=== PATIENT | female | born 1985 | race Caucasian/White ===

== ENCOUNTER 2017-08-26 22:37 | Emergency (ER) | payer OTHER ==
[2017-08-26] MEDS ORDERED: DEXAMETHASONE 10 MG/ML VIAL ONE (23:25)
[2017-08-26] MEDS ORDERED: ONDANSETRON 4 MG/2 ML VIAL ONE (23:26)
[2017-08-26] MEDS ORDERED: METOCLOPRAMIDE 10 MG/2mL INJ ONE (23:26)
[2017-08-26] MEDS ORDERED: NA CHLORIDE 0.9% 500 ML ONE (23:26)
[2017-08-26] MEDS ORDERED: DIPHENHYDRAMINE 50 MG/ML VIAL ONE (23:26)
[2017-08-27 00:10] LABS: Absolute Lymphocytes (CBC) 2.5 K/uL (0.7-4.9); Absolute Monocytes 0.6 K/uL (0.1-1.3); Absolute Neutrophil 6.7 K/uL (1.8-8.0); Basophils % 0.3 % (0-1.3); Eosinophils % 2.7 % (0-4.4); Hematocrit 29.8 % (36.0-45.0); Lymphocytes % 24.6 % (15.3-44.8); MCH 26.2 pg (27.0-35.0); MCV 81.1 fL (80-100); MPV 9.4 fL (7.6-11.3); Monocytes % 6.3 % (3.3-12.3); RBC Red Blood Cell Count 3.68 M/uL (3.86-4.86)
[2017-08-27 00:14] LABS: BUN Blood Urea Nitrogen 11 mg/dL (6-20); Bicarbonate 25 mEq/L (21-31); Glucose Level 85 mg/dL (65-120); Potassium 3.8 mEq/L (3.6-5.0); Sodium Level 136 mEq/L (135-145)
[2017-08-27 00:53] LABS: Urine Bacteria <20 /HPF (<20); Urine Culture Reflex Order NOT NEEDED; Urine RBC <5 /HPF (NONE SEEN)
[2017-08-27 00:53] LABS: Urine Blood NEGATIVE (NEG); Urine Glucose NEGATIVE (NEG); Urine Protein NEGATIVE (NEG); Urine Specific Gravity 1.015 (1.005-1.030); Urine pH 6.5 (5.0-7.0)
[2017-08-27] MEDS ORDERED: Magnesium Sulfate 2gm IVPB 2 G/50 ML BAG IV ONE ×2 (01:08→01:09)
[2017-08-27 01:16] LABS: ALT/SGPT 22 IU/L (10-60); AST/SGOT 21 IU/L (10-42); Albumin 2.9 g/dL (3.2-5.5); Alkaline Phosphatase 142 IU/L (42-121); Bilirubin Direct < 0.1 mg/dL (0-0.2); Bilirubin Total 0.4 mg/dL (0.3-1.2); Protein, Total 6.5 g/dL (6.0-8.3)
--- NOTE | 2017-08-27 01:30 | EDPHYS ---
Physician Documentation [facility] Name: Nilsa Christian Age: 32 yrs Sex: Female : 1985 Arrival Date: 08/26/2017 Time: 22:42 Bed 8 Private MD: ED Physician Nick Cleaning HPI: 08/26 23:30 This 32 yrs old Female presents to ER via EMS with complaints of Headache. cp 23:30 The patient complains of pain to the top of head and forehead. The patient describes cp the headache as aching, constant. Onset: The symptoms/episode began/occurred tonight. Associated signs and symptoms: Pertinent positives: nausea, Photophobia. 23:30 Severity of symptoms: in the emergency department the pain a " 6" out of "10". cp 23:30 Patient reports she was at home this evening laying down when she felt like her blood cp pressure was elevated. Patient reports she checked her blood pressure and it was 170/119. Patient reports she then started to have a headache. 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 - Social history:: Smoking status: Patient/guardian denies using tobacco, the patient reports quitting approximately 2 years ago. ROS: 23:35 Constitutional: Negative for body aches, chills, fever, poor PO intake. cp 23:35 ENT: Negative for injury, pain, and discharge. cp 23:35 Eyes: Positive for photophobia, Negative for discharge, pain, redness. 23:35 Neck: Negative for pain with movement, pain at rest, stiffness, swollen nodes, tenderness. 23:35 Cardiovascular: Negative for chest pain, edema, palpitations. 23:35 Respiratory: Negative for cough, shortness of breath, wheezing. 23:35 Abdomen/GI: Positive for abdominal pain, nausea, Negative for vomiting, diarrhea, constipation. 23:35 Back: Negative for pain at rest, pain with movement, radiated pain. 23:35 Skin: Negative for cellulitis, rash. 23:35 Neuro: Positive for headache, Negative for altered mental status, dizziness, seizure activity. 23:35 All other systems are negative. Exam: 23:42 Constitutional: The patient appears in no acute distress, alert, awake, cp non-diaphoretic, non-toxic, well developed, well nourished. 23:42 Head/Face: Normocephalic, atraumatic. Eyes: Pupils equal round and reactive to light, cp extra-ocular motions intact. Lids and lashes normal. Conjunctiva and sclera are non-icteric and not injected. Cornea within normal limits. Periorbital areas with no swelling, redness, or edema. ENT: Nares patent. No nasal discharge, no septal abnormalities noted. Tympanic membranes are normal and external auditory canals are clear. Oropharynx with no redness, swelling, or masses, exudates, or evidence of obstruction, uvula midline. Mucous membranes moist. Neck: Trachea midline, no thyromegaly or masses palpated, and no cervical lymphadenopathy. Supple, full range of motion without nuchal rigidity, or vertebral point tenderness. No Meningismus. Chest/axilla: Normal chest wall appearance and motion. Nontender with no deformity. No lesions are appreciated. 23:42 Cardiovascular: Rate: normal, Rhythm: regular, Pulses: Pulses are 2+ in right radial artery and left radial artery. Heart sounds: murmur, not appreciated, Edema: is not appreciated, JVD: is not appreciated. 23:42 Respiratory: the patient does not display signs of respiratory distress, Respirations: normal, no use of accessory muscles, no retractions, no splinting, no tachypnea, labored breathing, is not present, Breath sounds: are clear throughout, no decreased breath sounds, no stridor, no wheezing. 23:42 Abdomen/GI: Inspection: scar(s), are noted in the lower abdomen, Bowel sounds: active, all quadrants, Palpation: soft, in all quadrants, mild abdominal tenderness, in the right lower quadrant and left lower quadrant, rebound tenderness, is not appreciated, involuntary guarding, is not appreciated. 23:42 Back: pain, is absent, ROM is normal, CVA tenderness, is absent. 23:42 Skin: cellulitis, is not appreciated, no rash present. 23:42 Neuro: Orientation: to person, place \\T\\ time. Mentation: is normal, Cerebellar function: Romberg testing is negative, normal finger to nose testing, Motor: strength is 5/5 in the right arm and left arm, strength is 4/5 in the right leg and left leg, Sensation: no obvious gross deficits. Vital Signs: 22:48 BP 147 / 89; Pulse 90; Resp 18; Temp 98.9(O); Pulse Ox 99% on R/A; Weight 95.25 kg (R); ak1 Height 5 ft. 7 in. (170.18 cm) (R); Pain 6/10; 23:04 BP 148 / 94; Pulse 88; ea 08/27 00:23 BP 134 / 81; Pulse 88; Resp 20; Pulse Ox 99% ; Pain 4/10; ea 01:20 BP 126 / 77; Pulse 88; Resp 18; Temp 98.9; Pulse Ox 98% on R/A; Pain 4/10; ak1 08/26 22:48 Body Mass Index 32.89 (95.25 kg, 170.18 cm) ak1 MDM: 08/26 23:07 Patient medically screened. 08/27 00:00 Differential diagnosis: cluster headache, migraine, sinusitis, subarachnoid bleed, cp preeclampsia, dehydration, CVA. 01:00 Data reviewed: vital signs, nurses notes, lab test result(s), EKG. 01:02 Physician consultation: DR Strong, WELLNESS PROGRAM MANAGER, will accept patient as transfer to [facility]. 08/26 23:20 Order name: CBC with Diff; Complete Time: 00:32 08/27 00:32 Interpretation: Normal except: RBC 3.68; HGB 9.6; HCT 29.8; MCH 26.2; RDW 15.5. 08/26 23:20 Order name: BMP; Complete Time: 00:32 08/26 23:20 Order name: Urine Microscopic Only; Complete Time: 00:55 08/27 00:56 Interpretation: Reviewed. 08/27 00:30 Order name: Urine Dipstick--Ancillary (enter results); Complete Time: 00:53 rg2 08/27 00:54 Order name: LFT's; Complete Time: 01:30 cp 08/27 01:31 Interpretation: Normal except: ALK 142; ALB 2.9; GLOB 3.6; A/G 0.8. cp 08/26 23:20 Order name: Urine Dipstick-Ancillary (obtain specimen); Complete Time: 00:34 cp 08/26 23:20 Order name: EKG; Complete Time: 23:21 cp 08/26 23:20 Order name: EKG - Nurse/Tech; Complete Time: 23:35 cp EC/09 23:33 Rate is 92 beats/min. Rhythm is regular. [place] interval is normal. QRS interval is normal. cp QT interval is normal. T waves are Flattened in lead III. Interpreted by me. Reviewed by me. Administered Medications: 23:49 Not Given (Patient Refused): Reglan 10 mg IVP once; over 1 to 2 minutes ea 23:49 Drug: Benadryl 25 mg Route: IVP; Site: left hand; ea 08/27 00:49 Follow up: Response: No adverse reaction; Marked relief of symptoms ea 08/26 23:50 Drug: NS 0.9% 500 ml Route: IV; Rate: bolus; Site: left hand; ea 23:50 Drug: Zofran 4 mg Route: IVP; Site: left hand; ea 08/27 00:49 Follow up: Response: No adverse reaction; Marked relief of symptoms ea 08/26 23:50 Drug: Decadron - Dexamethasone 10 mg Route: IVP; Site: left hand; ea 08/27 00:49 Follow up: Response: No adverse reaction; Marked relief of symptoms ea 01:18 Drug: Magnesium Sulfate 6 grams Route: IVPB; Infused Over: 30 mins; Site: left hand; ak1 02:20 Follow up: IV Status: Completed infusion ak1 02:20 CANCELLED (per ERP, pt in already in rout to [place]. ): Magnesium Sulfate 2 grams IVPB ak1 once over 2 Titrate; give 2 grams every 1 hour Disposition: 05:58 Co-signature as Attending Physician, Nick Cleaning MD I agree with the assessment and tw4 plan of care. Disposition: 08/27/17 01:30 Transfer ordered to [facility]. Diagnosis are Headache, Encounter for maternal care and examination, Elevated blood-pressure reading, without diagnosis of hypertension. - Reason for transfer: Higher level of care. - Accepting physician is Ligia. - Condition is Stable. - Problem is new. - Symptoms have improved. Signatures: Dispatcher [employer] EDMS Kamini Smith RN RN ak1 Kosta Jarvis PA PA cp Antunez, Elena, RN RN ea Wadley, Terrence, MD MD tw4 Corrections: (The following items were deleted from the chart) 02:20 02:15 Magnesium Sulfate 2 grams IVPB once over 2 Titrate; give 2 grams every 1 hour ak1 ordered. cp
--- NOTE | 2017-08-27 01:30 | ER ---
Nurse's Notes [facility] Name: Nilsa Christian Age: 32 yrs Sex: Female : 1985 Arrival Date: 08/26/2017 Time: 22:42 Bed 8 Private MD: Diagnosis: Headache;Encounter for maternal care and examination;Elevated blood-pressure reading, without diagnosis of hypertension Presentation: 08/26 22:42 Presenting complaint: Patient states: headache, "flushed feeling" increased blood ak1 pressure. pt took Aspirin 81mg and tylenol #3. pt s/p 08/22/17. pt FELLER HAND is at [place], pt neurologist [facility]. pt stated headache started at 2030. Transition of care: patient was not received from another setting of care. Onset of symptoms was August 26, 2017. Note pt with hx neurocardiogenic syncope. pt with neuroplegic migraines. pt PCP - Dr. Bradford. Care prior to arrival: None. 22:42 Method Of Arrival: EMS: [facility] ak1 22:42 Acuity: [place] 3 ak1 Triage Assessment: 22:48 Headache History: Other with increased blood pressure and "flush feeling". General: ak1 Appears uncomfortable, Behavior is calm, cooperative. Pain: Complains of pain in head Pain currently is 6 out of 10 on a pain scale. Pain began 2 hours ago. Pain: Also complains of generalized weakness. EENT: No signs and/or symptoms were reported regarding the EENT system. Neuro: Level of Consciousness is awake, alert, obeys commands, Oriented to person, place, time, situation, Energy Assistant are equal bilaterally Speech is normal, Facial symmetry appears normal. Cardiovascular: No deficits noted. Respiratory: No deficits noted. GI: No signs and/or symptoms were reported involving the gastrointestinal system. : No signs and/or symptoms were reported regarding the genitourinary system. Derm: No signs and/or symptoms reported regarding the dermatologic system. Musculoskeletal: No signs and/or symptoms reported regarding the musculoskeletal system. 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 - Social history:: Smoking status: Patient/guardian denies using tobacco, the patient reports quitting approximately 2 years ago. Screenin:52 Abuse screen: Denies threats or abuse. Denies injuries from another. Nutritional ak1 screening: No deficits noted. Tuberculosis screening: No symptoms or risk factors identified. Fall Risk None identified. Assessment: 22:53 Reassessment: Patient appears in no apparent distress at this time. No changes from ak1 previously documented assessment. see triage assessment, no change from triage assessment. 08/27 00:32 Reassessment: Patient appears in no apparent distress at this time. Patient is alert, ak1 oriented x 3, equal unlabored respirations, skin warm/dry/pink. Patient states symptoms have improved. 01:42 Reassessment: Patient and/or family updated on plan of care and expected duration. Pain ea level reassessed. Patient is alert, oriented x 3, equal unlabored respirations, skin warm/dry/pink. 02:21 Reassessment: Patient appears in no apparent distress at this time. No changes from ak1 previously documented assessment. Patient and/or family updated on plan of care and expected duration. Pain level reassessed. Patient is alert, oriented x 3, equal unlabored respirations, skin warm/dry/pink. Patient states symptoms have improved. report given to Sole with [facility]. . Vital Signs: 08/26 22:48 BP 147 / 89; Pulse 90; Resp 18; Temp 98.9(O); Pulse Ox 99% on R/A; Weight 95.25 kg (R); ak1 Height 5 ft. 7 in. (170.18 cm) (R); Pain 6/10; 23:04 BP 148 / 94; Pulse 88; ea 08/27 00:23 BP 134 / 81; Pulse 88; Resp 20; Pulse Ox 99% ; Pain 4/10; ea 01:20 BP 126 / 77; Pulse 88; Resp 18; Temp 98.9; Pulse Ox 98% on R/A; Pain 4/10; ak1 08/26 22:48 Body Mass Index 32.89 (95.25 kg, 170.18 cm) ak1 ED Course: 08/26 22:42 Patient arrived in ED. ak1 22:46 Triage completed. ak1 22:48 Arm band placed on Patient placed in an exam room, on a stretcher, on air sampling and monitoring, ak1 on pulse oximetry, Patient notified of wait time. 22:52 Patient has correct armband on for positive identification. Bed in low position. Call ak1 light in reach. Side rails up X2. site monitor on. Pulse ox on. NIBP on. 23:03 Geno Mark, BANG is Primary Nurse. ea 23:06 Kosta Jarvis PA is PHCP. cp 23:06 Nick Cleaning MD is Attending Physician. cp 23:35 Inserted saline lock: 22 gauge in left hand, using aseptic technique. Blood collected. ak1 08/27 00:24 Straight cath inserted, using sterile technique, 16 Fr. Specimen obtained. Returned ak1 clear yellow urine. Patient tolerated well. 02:20 No provider procedures requiring assistance completed. Patient transferred, IV remains ak1 in place. Administered Medications: 08/26 23:49 Not Given (Patient Refused): Reglan 10 mg IVP once; over 1 to 2 minutes ea 23:49 Drug: Benadryl 25 mg Route: IVP; Site: left hand; ea 08/27 00:49 Follow up: Response: No adverse reaction; Marked relief of symptoms ea 08/26 23:50 Drug: NS 0.9% 500 ml Route: IV; Rate: bolus; Site: left hand; ea 23:50 Drug: Zofran 4 mg Route: IVP; Site: left hand; ea 08/27 00:49 Follow up: Response: No adverse reaction; Marked relief of symptoms ea 08/26 23:50 Drug: Decadron - Dexamethasone 10 mg Route: IVP; Site: left hand; ea 08/27 00:49 Follow up: Response: No adverse reaction; Marked relief of symptoms ea 01:18 Drug: Magnesium Sulfate 6 grams Route: IVPB; Infused Over: 30 mins; Site: left hand; ak1 02:20 Follow up: IV Status: Completed infusion ak1 02:20 CANCELLED (per ERP, pt in already in rout to [place]. ): Magnesium Sulfate 2 grams IVPB ak1 once over 2 Titrate; give 2 grams every 1 hour Outcome: 01:30 ER care complete, transfer ordered by . cp 02:20 Transferred by ground EMS to [facility], Transfer form completed. ak1 02:20 Condition: good 02:20 Instructed on the need for transfer. 02:23 Patient left the ED. ak1 Signatures: Kamini Smith RN RN ak1 Kosta Jarvis, HORACE PA Geno Dillon, RN RN christiano
[2017-08-27 02:30] VITALS: TEMP 98.9
[2017-08-27 02:33] VITALS: BP 126/77; O2SAT 98
--- NOTE | 2017-08-27 06:55 | EKG ---
Test Date: 2017-08-26 Test Time: 23:27:12 Interactive Media Marketing Strategist: DANNA MEASUREMENT RESULTS: Intervals: Rate: 92 IL: 116 QRSD: 76 QT: 356 QTc: 440 [place]: P: 24 IL: 116 QRS: 7 T: 37 INTERPRETIVE STATEMENTS: Normal sinus rhythm Nonspecific ST abnormality Abnormal ECG Compared to ECG 07/27/2017 20:29:49 ST (T wave) deviation now present Sinus tachycardia no longer present Electronically Signed On 08-27-17 06:54:54 CDT by Oscar Marin
== END 2017-08-27 02:23 | disposition short-term general hospital (02) ==
LOC: ER 22:37
DX: O16.5 Unspecified maternal hypertension, complicating the puerperium (principal); Z88.0 Allergy status to penicillin; Z88.3 Allergy status to other anti-infective agents
CPT/HCPCS: 36415; 51702; 80048; 80076; 81003; 81015; 85025; 93005; 96365; 96375; 99285; J1100; J2405; J2765; J3475